=== PATIENT | male | born 1975 | race Caucasian/White ===

== ENCOUNTER → 2017-12-15 | Outpatient (CLI) | payer BC, OTHER | END | disposition home or self-care (01) | LOC: C.RDSM 18:18 | PROVIDERS: ATTEND Family Medicine | DX: M67.52 Plica syndrome, left knee (principal) ==

== ENCOUNTER → 2017-12-20 | Outpatient (CLI) | payer OTHER ==
--- NOTE | 2017-12-20 09:13 | DIAGNOSTIC IMAGING REPORT ---
MRI OF THE LEFT KNEE WITHOUT CONTRAST CLINICAL HISTORY: Left knee pain. Plica syndrome. COMPARISON STUDY: Left knee radiographs December 15, 2017. TECHNIQUE: Utilizing a 1.5 Andie magnet and dedicated coil, multiplanar, multiecho imaging of the left knee was performed without intravenous or intraarticular contrast. FINDINGS: The trochlear groove is shallow. There is moderate chondrosis with subchondral signal abnormality within the medial patellar cartilage as well as the trochlear cartilage there is no evidence for fracture. There is no suspicious marrow replacement. The cruciate and collateral ligaments are intact. Lateral meniscus is intact. There is an oblique tear of the posterior horn of the medial meniscus. Small multiloculated cystic abnormalities along the posterior horn of the medial meniscus suggest small parameniscal cysts measure up to proximally 7 mm. No thickened plica is identified. There is no joint effusion. There is no significant chondrosis within the medial or lateral compartments. Exam is mildly compromised by motion artifact. IMPRESSION: 1. Oblique tear of the posterior horn of the medial meniscus with small associated parameniscal cysts. 2. Moderate patellofemoral chondromalacia. 3. No thickened plica identified. 4. Shallow trochlear groove. Electronically signed by: Maurice Ledezma M.D. 12/20/2017 9:11 AM Dictated Date/Time: 12/20/2017 9:02 AM
== END | disposition home or self-care (01) ==
LOC: C.MRI 08:03
PROVIDERS: ATTEND Family Medicine
DX: M67.52 Plica syndrome, left knee (principal); S83.242A Other tear of medial meniscus, current injury, left knee, initial encounter; X58.XXXA Exposure to other specified factors, initial encounter; M22.42 Chondromalacia patellae, left knee